=== PATIENT | male | born 1970 | race Caucasian/White ===

== ENCOUNTER → 2018-03-20 | Outpatient (CLI) | payer OTHER ==
--- NOTE | 2018-03-20 14:27 | MR ---
EXAMINATION TYPE: MR knee RT wo con DATE OF EXAM: 03/20/2018 COMPARISON: NONE HISTORY: Pain in right knee TECHNIQUE: Multiplanar, multisequence imaging of the right knee is performed without IV contrast. FINDINGS: MEDIAL MENISCUS: There is some minimal increased signal within the substance of the posterior horn me dial meniscus compatible with internal derangement or degenerative change. Anterior horn appears inta ct. LATERAL MENISCUS: There is increased signal within the anterior horn lateral meniscus which could be related to some mild internal derangement or degenerative change. Posterior horn appears intact. CRUCIATE LIGAMENTS: The anterior and posterior cruciate ligaments are intact and unremarkable. COLLATERAL LIGAMENTS: The medial collateral ligament and lateral collateral ligament complex are inta ct. Minimal signal may be adjacent to the medial collateral ligament. Very mild strain could be consi dered. EXTENSOR MECHANISM: There is minimal increased signal near the insertion of the patellar tendon on th e tibia. Mild strain at this location should be considered. Distal quadriceps tendon is normal. EFFUSION: No significant suprapatellar joint effusion. POPLITEAL CYST: No popliteal/moore cyst. TRICOMPARTMENT SPACES: Mild narrowing of the medial lateral compartment are present. Patellofemoral j oint space appears preserved. CARTILAGE: There is mild thinning of the articular cartilage within the medial and lateral compartmen t joint spaces compatible some mild osteoarthritic degenerative change. Articular cartilage appears i ntact. Patellofemoral articular cartilage appears intact. BONE MARROW SIGNAL: No focal abnormal marrow signal is appreciated. OTHER: There is some superficial soft tissue swelling anterior to the patella within the subcutaneou s tissues. Note is made of some mild varicosities within the medial distal thigh IMPRESSION: 1. Internal derangement or degenerative change within the posterior horn medial meniscus and anterior horn lateral meniscus. 2. Mild superficial soft tissue swelling anterior to patella. 3. Mild osteoarthritic degenerative change medial and lateral compartments.
== END | disposition home or self-care (01) ==
LOC: RADMRIMAIN 09:53
PROVIDERS: ATTEND Orthopaedic Surgery
DX: M17.11 Unilateral primary osteoarthritis, right knee (principal)

== ENCOUNTER → 2019-07-04 | Outpatient (CLI) | payer BC | END | disposition home or self-care (01) | LOC: LABWHC1 11:59 | PROVIDERS: ATTEND Internal Medicine | DX: D64.9 Anemia, unspecified (principal) | CPT/HCPCS: 36415; 83021 ==

== ENCOUNTER → 2022-01-30 | Outpatient (CLI) | payer BC ==
--- NOTE | 2022-01-30 09:59 | CT ---
EXAMINATION TYPE: CT shoulder LT w con DATE OF EXAM: 01/30/2022 COMPARISON: Plain film radiographs 01/04/2022 HISTORY: Pain left shoulder CT DLP: 1482.[address] of the left shoulder with reconstruction imaging. Contrast:Isovue 300/100 TECHNIQUE: Contrast-enhanced CT of the right shoulder was performed with bone and soft tissue window settings submitted in the axial coronal and sagittal planes. At a separate workstation [id number] TR imagin g was obtained. FINDINGS: I do not see evidence for fracture or dislocation. No evidence for subacromial impingement as there is a flat acromium. AC joint arthropathy with mild spurring seen. No evidence of distal c lavicular lesion or fracture. Tiny bone island humeral head. Glenohumeral joint space is well-preserv ed. No obvious rotator cuff abnormality seen on CT. MRI is much more sensitive and specific to rota tor cuff pathology. No soft tissue masses appreciated. Visualized portions of the right lung demons trate right apical scarring. No pathologic enhancement identified. IMPRESSION: 1. AC joint arthropathy without evidence for lesion or fracture.
== END | disposition home or self-care (01) ==
LOC: RADCTMAIN 08:18
PROVIDERS: ATTEND Internal Medicine
DX: M12.812 Other specific arthropathies, not elsewhere classified, left shoulder (principal)

== ENCOUNTER 2024-01-19 19:26 | Observation (INO) | payer BC ==
--- NOTE | 2024-01-19 20:12 | ED ---
Abdominal Pain HPI - General Chief Complaint: Abdominal Pain Stated Complaint: abd pain Time Seen by Provider: 01/19/24 19:46 Source: patient, EMS, RN notes reviewed Mode of arrival: EMS Limitations: no limitations - History of Present Illness Initial Comments: 53-year-old male with a history of kidney stones in the past who had the onset at 6 PM tonight of severe left-sided flank pain similar to previous kidney stones. Sharp nonradiating. No nausea vomiting fevers chills or sweats. MD Complaint: flank pain - Related Data Home Medications Medication Instructions Recorded Confirmed Benzoyl Peroxide 10% Cleanser 1 applic TOPICAL DAILY 01/19/24 01/19/24 Clindamycin Phosphate 1% Swab 1 applic TOPICAL DAILY 01/19/24 01/19/24 Ergocalciferol (Vitamin D2) 1,250 mcg PO MO 01/19/24 01/19/24 [Drisdol (50,000 Iu)] Ferrous Sulfate [Feosol] 325 mg PO DAILY 01/19/24 01/19/24 LORazepam [Ativan] 0.5 mg PO BID 01/19/24 01/19/24 Losartan Potassium 100 mg PO DAILY 01/19/24 01/19/24 Metoprolol Tartrate [Lopressor] 50 mg PO DAILY 01/19/24 01/19/24 Mirtazapine 7.5 mg PO HS PRN 01/19/24 01/19/24 Naproxen Sodium [Aleve] 220 mg PO BID 01/19/24 01/19/24 Rosuvastatin Calcium 5 mg PO HS 01/19/24 01/19/24 Allergies Allergy/AdvReac Type Severity Reaction Status Date / Time animal dander Allergy Itching Uncoded 01/19/24 20:38 dust Allergy Itching Uncoded 01/19/24 20:38 pollen Allergy Itching Uncoded 01/19/24 20:38 Review of Systems ROS Statement: Those systems with pertinent positive or pertinent negative responses have been documented in the HPI. ROS Other: All systems not noted in ROS Statement are negative. Past Medical History Past Medical History: Hypertension Additional Past Medical History / Comment(s): Kidney Stones History of Any Multi-Drug Resistant Organisms: None Reported Past Surgical History: Appendectomy, Orthopedic Surgery, Tonsillectomy Additional Past Surgical History / Comment(s): Wrist Surgery Past Anesthesia/Blood Transfusion Reactions: Previous Problems w/ Anesthesia Additional Past Anesthesia/Blood Transfusion Reaction / Comment(s): difficult time waking up from aa Past Psychological History: No Psychological Hx Reported Past Alcohol Use History: Rare Past Drug Use History: None Reported - Past Family History Father Additional Family Medical History / Comment(s): smoker, quad bypass Mother Family Medical History: Diabetes Mellitus General Exam - General Exam Comments Initial Comments: This is a well-developed well-nourished awake alert oriented x 4 male Limitations: no limitations General appearance: alert, anxious, in distress Head exam: Present: atraumatic, normocephalic, normal inspection Eye exam: Present: normal appearance, PERRL, EOMI. Absent: scleral icterus, conjunctival injection, periorbital swelling ENT exam: Present: normal exam, mucous membranes moist Neck exam: Present: normal inspection, full ROM. Absent: tenderness, meningismus, lymphadenopathy Respiratory exam: Present: normal lung sounds bilaterally. Absent: respiratory distress, wheezes, rales, rhonchi, stridor Cardiovascular Exam: Present: regular rate, normal rhythm, normal heart sounds. Absent: systolic murmur, diastolic murmur, rubs, gallop, clicks GI/Abdominal exam: Present: soft, normal bowel sounds. Absent: distended, tenderness, guarding, rebound, rigid Extremities exam: Present: normal inspection, full ROM, normal capillary refill. Absent: tenderness, pedal edema, joint swelling, calf tenderness Back exam: Present: normal inspection, CVA tenderness (L) Neurological exam: Present: alert, oriented X3, CN II-XII intact Psychiatric exam: Present: normal affect, normal mood Skin exam: Present: warm, dry, intact, normal color. Absent: rash Course Vital Signs 01/19/24 19:31 Temperature 98.0 F Pulse Rate 71 Respiratory 18 Rate Blood Pressure 149/81 O2 Sat by Pulse 96 Oximetry - Reevaluation(s) Reevaluation #1: 01/19/24 21:25 Evaluation the patient finds that he feels much improved after the IV Toradol. Medical Decision Making - Medical Decision Making I did discuss the findings with the patient and his as well as with Dr. Esteves. The patient will be admitted for pain control IV hydration n.p.o. after midnight. The patient keeps having refractory pain he did receive IV morphine by EMS IV Toradol and IV Dilaudid given on my orders. Was pt. sent in by a medical professional or institution (, [facility], [employer], urgent care, hospital, or usp...) When possible be specific @ -Patient's family Did you speak to anyone other than the patient for history (EMS, parent, family, police, friend...)? What history was obtained from this source @ -Patient's family Did you review nursing and triage notes (agree or disagree)? Why? @ -I reviewed and agree with nursing and triage notes Were old charts reviewed (outside hosp., previous admission, EMS record, old EKG, old radiological studies, urgent care reports/EKG's, usp records)? Report findings @ -Old charts were reviewed Differential Diagnosis (chest pain, altered mental status, abdominal pain women, abdominal pain men, vaginal bleeding, weakness, fever, dyspnea, syncope, headache, dizziness, GI bleed, back pain, seizure, CVA, palpatations, mental health, musculoskeletal)? @ -Not applicable EKG interpreted by me (3pts min.). @ -Not indicated X-rays interpreted by me (1pt min.). @ -None done CT interpreted by me (1pt min.). @ -CT abdomen pelvis imaging positive for kidney stones bilaterally there is a 4.5 mm stone at the left UPJ. U/S interpreted by me (1pt. min.). @ -None done What testing was considered but not performed or refused? (CT, X-rays, U/S, labs)? Why? @ -None What meds were considered but not given or refused? Why? @ -None Did you discuss the management of the patient with other professionals (professionals i.e. , [facility], [employer], lab, RT, psych nurse, school social worker, communication equipment repairer, teacher, coastal/harbor defense officer, senior case manager)? Give summary @ -Dr. Esteves Was smoking cessation discussed for >3mins.? @ -No Was critical care preformed (if so, how long)? @ -No Were there social determinants of health that impacted care today? How? (Homelessness, low income, unemployed, alcoholism, drug addiction, transportation, low edu. Level, literacy, decrease access to med. care, long-term, rehab)? @ -No Was there de-escalation of care discussed even if they declined (Discuss DNR or withdrawal of care, Hospice)? DNR status @ -No What co-morbidities impacted this encounter? (DM, HTN, Smoking, COPD, CAD, Cancer, CVA, ARF, Chemo, Hep., AIDS, mental health diagnosis, sleep apnea, morbid obesity)? @ -None Was patient admitted / discharged? Hospital course, mention meds given and route, prescriptions, significant lab abnormalities, going to OR and other pertinent info. @ -Hospital course was admitted he will be n.p.o. after midnight possible surgery in the a.m. IV fluids and IV pain medication Undiagnosed new problem with uncertain prognosis? @ -No Drug Therapy requiring intensive monitoring for toxicity (Heparin, Nitro, Insulin, Cardizem)? @ -No Were any procedures done? @ -No Diagnosis/symptom? @ -Kidney stone, intractable pain, hematuria] Acute, or Chronic, or Acute on Chronic? @ -Acute on chronic Uncomplicated (without systemic symptoms) or Complicated (systemic symptoms)? @ -Default Side effects of treatment? @ -No Exacerbation, Progression, or Severe Exacerbation? @ -No Poses a threat to life or bodily function? How? (Chest pain, USA, MS, pneumonia, PE, COPD, DKA, ARF, appy, cholecystitis, CVA, Diverticulitis, Homicidal, Suicidal, threat to staff... and all critical care pts) @ -No - Lab Data Result diagrams: 01/19/24 20:16 01/19/24 20:16 Lab Results 01/19/24 01/19/24 01/19/24 Range/Units 20:16 20:16 21:31 WBC 7.7 (3.8-10.6) k/uL RBC 4.71 (4.30-5.90) m/uL Hgb 13.2 (13.0-17.5) gm/dL Hct 41.2 (39.0-53.0) % MCV 87.5 (80.0-100.0) fL MCH 28.1 (25.0-35.0) pg MCHC 32.1 (31.0-37.0) g/dL RDW 14.9 (11.5-15.5) % Plt Count 223 (150-450) k/uL MPV 7.8 Neutrophils % 68 % Lymphocytes % 19 % Monocytes % 7 % Eosinophils % 4 % Basophils % 1 % Neutrophils # 5.3 (1.3-7.7) k/uL Lymphocytes # 1.5 (1.0-4.8) k/uL Monocytes # 0.6 (0-1.0) k/uL Eosinophils # 0.3 (0-0.7) k/uL Basophils # 0.0 (0-0.2) k/uL Sodium 140 (137-145) mmol/L Potassium 4.4 (3.5-5.1) mmol/L Chloride 108 H (98-107) mmol/L Carbon Dioxide 24 (22-30) mmol/L Anion Gap 8 mmol/L BUN 18 (9-20) mg/dL Creatinine 0.97 (0.66-1.25) mg/dL Est GFR (CKD-EPI)AfAm >90 (>60 ml/min/1.73 sqM) Est GFR (CKD-EPI)NonAf >90 (>60 ml/min/1.73 sqM) Glucose 104 H (74-99) mg/dL Calcium 8.6 (8.4-10.2) mg/dL Total Bilirubin 0.5 (0.2-1.3) mg/dL AST 32 (17-59) U/L ALT 54 H (4-49) U/L Alkaline Phosphatase 72 (38-126) U/L Total Protein 7.2 (6.3-8.2) g/dL Albumin 3.8 (3.5-5.0) g/dL Amylase 63 (30-110) U/L Lipase 407 H (23-300) U/L Urine Color Yellow Urine Appearance Cloudy (Clear) Urine pH 5.0 (5.0-8.0) Ur Specific [place] 1.024 (1.001-1.035) Urine Protein Trace H (Negative) Urine Glucose (UA) Negative (Negative) Urine Ketones Negative (Negative) Urine Blood Moderate H (Negative) Urine Nitrite Negative (Negative) Urine Bilirubin Negative (Negative) Urine Urobilinogen <2.0 (<2.0) mg/dL Ur Leukocyte Esterase Negative (Negative) Urine RBC >182 H (0-5) /hpf Urine WBC 4 (0-5) /hpf Ur Squamous Epith Cells <1 (0-4) /hpf Urine Bacteria Rare H (None) /hpf Urine Mucus Occasional H (None) /hpf Disposition Clinical Impression: Kidney stone on left side, Intractable pain, Hematuria Disposition: [facility] Condition: Fair Referrals: Violet Patel MD [Primary Care Provider] - 1-2 days Time of Disposition: 22:58 Decision Date: 01/19/24 Decision Time: 22:58
[2024-01-19] MEDS: KETOROLAC 15 MG/ML 1 ML VIAL IVP STA (20:16)
[2024-01-19 20:23] LABS: Basophils % (A) 1 %; Eosinophils # (A) 0.3 k/uL (0-0.7); Eosinophils % (A) 4 %; HCT 41.2 % (39.0-53.0); HGB 13.2 gm/dL (13.0-17.5); Lymphocytes # (A) 1.5 k/uL (1.0-4.8); Lymphocytes % (A) 19 %; MCH 28.1 pg (25.0-35.0); MCHC 32.1 g/dL (31.0-37.0); MCV 87.5 fL (80.0-100.0); Mean Platelet Volume 7.8; Monocytes # (A) 0.6 k/uL (0-1.0); Monocytes % (A) 7 %; Neutrophils # (A) 5.3 k/uL (1.3-7.7); Neutrophils % (A) 68 %; Platelet Count 223 k/uL (150-450); RBC 4.71 m/uL (4.30-5.90); RDW 14.9 % (11.5-15.5); WBC 7.7 k/uL (3.8-10.6)
[2024-01-19 20:55] LABS: ALT 54 U/L (4-49); AST 32 U/L (17-59); African American GFR (CKD) >90 (>60 ml/min/1.73 sqM); Albumin 3.8 g/dL (3.5-5.0); Alkaline Phosphatase 72 U/L (38-126); Amylase 63 U/L (30-110); Anion Gap 8 mmol/L; Blood Urea Nitrogen 18 mg/dL (9-20); Calcium 8.6 mg/dL (8.4-10.2); Carbon Dioxide 24 mmol/L (22-30); Chloride 108 mmol/L (98-107); Glucose 104 mg/dL (74-99); Lipase 407 U/L (23-300); Non-African American GFR(CKD) >90 (>60 ml/min/1.73 sqM); Potassium 4.4 mmol/L (3.5-5.1); Sodium 140 mmol/L (137-145); Total Bilirubin 0.5 mg/dL (0.2-1.3); Total Protein 7.2 g/dL (6.3-8.2)
[2024-01-19] MEDS: HYDROmorphone 1 MG/ML 1 ML SYRINGE IVP STA (21:46)
--- NOTE | 2024-01-19 21:46 | CT ---
EXAMINATION TYPE: CT abdomen pelvis wo con DATE OF EXAM: 01/19/2024 HISTORY: Left flank pain, kidney stone suspected CT DLP: 2622.3 mGycm. Automated Exposure Control for Dose Reduction was Utilized. TECHNIQUE: CT scan of the abdomen and pelvis is performed without oral or IV contrast. COMPARISON: 04/24/2015 FINDINGS: LUNG BASES: No significant abnormality is appreciated. LIVER/GB: No significant abnormality is appreciated. PANCREAS: No significant abnormality is seen. SPLEEN: No significant abnormality is seen. ADRENALS: No significant abnormality is seen. KIDNEYS / COLLECTING SYSTEMS: Bilateral nonobstructing 3 mm - 8 mm renal calcifications are seen. On the ipsilateral left there is minimal hydronephrosis with mild hydroureter down to a 4.5 mm calcifica tion at the left UPJ, with the left ureter unremarkable. On the contralateral right there is no hydro nephrosis or hydroureter. BOWEL: No significant abnormality is seen. PELVIC VISCERA: Urinary bladder unremarkable. LYMPH NODES: No greater than 1cm abdominal or pelvic lymph nodes are appreciated. OSSEOUS STRUCTURES: No significant abnormality is seen. Limitation of the study: Without IV contrast there is limited sensitivity for focal visceral lesions, intraluminal filling defects, and vascular pathology. IMPRESSION: Mild left obstructive uropathy secondary to 4.5 mm left UVJ calcification.
[2024-01-19 22:00] LABS: Appearance,Urine Cloudy (Clear); Bacteria,Urine Rare /hpf; Bilirubin,Urine Negative (Negative); Blood,Urine Moderate (Negative); Color,Urine Yellow; Glucose,Urine (UA) Negative (Negative); Ketones,Urine Negative (Negative); Leukocyte Esterase,Urine Negative (Negative); Mucus,Urine Occasional /hpf; Nitrite,Urine Negative (Negative); Protein,Urine Trace (Negative); RBC,Urine >182 /hpf (0-5); Specific Gravity,Urine 1.024 (1.001-1.035); Squamous Epithelial Cell,Urine <1 /hpf (0-4); Urobilinogen,Urine <2.0 mg/dL (<2.0); WBC,Urine 4 /hpf (0-5)
[2024-01-19] MEDS ORDERED: NALOXONE 0.4 MG/ML 1 ML VIAL IV PRN (22:59)
[2024-01-19] MEDS: SODIUM CHLORIDE 0.9% 1,000 ML IV STA (23:41)
[2024-01-20] MEDS: SODIUM CHLORIDE 0.9% 1,000 ML IV SCH (00:52)
[2024-01-20] MEDS: HYDROmorphone 1 MG/ML 1 ML SYRINGE IVP PRN (00:55)
--- NOTE | 2024-01-20 14:56 | P.GSHP ---
History of Present Illness Chief Complaint: left ureteral stone This is a 53-year-old male that presented to the hospital with intractable left flank pain associated with nausea and vomiting. In the emergency department he underwent CT abdomen and pelvis which showed evidence of a 4.5 mm left-sided proximal ureteral stones with hydronephrosis. He has required multiple IV doses of pain medications and continues to have persistent pain. He does have history of previous kidney stones treated by Dr. Blas coulter in 2014. That was his last stone recurrence. This morning on evaluation he continues to have left flank pain but indicates the nausea and vomiting has resolved. Denies any gross hematuria or dysuria or any additional urinary symptoms. Denies any fevers or chills. - Constitutional Constitutional: Denies chills, Denies fever - EENT Ears, nose, mouth and throat: Denies headache, Denies sore throat - Cardiovascular Cardiovascular: Denies chest pain, Denies shortness of breath - Respiratory Respiratory: Denies cough, Denies dyspnea - Gastrointestinal Gastrointestinal: Reports abdominal pain, Reports nausea, Reports vomiting - Genitourinary (Female) Genitourinary: Reports flank pain, Reports kidney stones, Denies dysuria, Denies hematuria - Integumentary Integumentary: Denies pruritus, Denies rash - Neurological Neurological: Denies numbness, Denies weakness Past Medical History Past Medical History: Asthma, Hyperlipidemia, Hypertension, Sleep Apnea/CPAP/BIPAP Additional Past Medical History / Comment(s): Kidney Stones, cpap. skin infecti on on antibiotics finished january 12 History of Any Multi-Drug Resistant Organisms: None Reported Past Surgical History: Appendectomy, Orthopedic Surgery, Tonsillectomy Additional Past Surgical History / Comment(s): bilateral carpel tunnel sx. right arm sx. nasal cavaties cleaned out.right hand/thumb area with screws. lithot ripsy. Past Anesthesia/Blood Transfusion Reactions: Previous Problems w/ Anesthesia Additional Past Anesthesia/Blood Transfusion Reaction / Comment(s): difficult time waking up Past Psychological History: Anxiety Smoking Status: Never smoker Past Alcohol Use History: Rare Past Drug Use History: None Reported - Past Family History Father Additional Family Medical History / Comment(s): smoker, quad bypass Mother Family Medical History: Diabetes Mellitus Medications and Allergies Home Medications Medication Instructions Recorded Confirmed Type Benzoyl Peroxide 10% Cleanser 1 applic TOPICAL DAILY 01/19/24 01/19/24 History Clindamycin Phosphate 1% Swab 1 applic TOPICAL DAILY 01/19/24 01/19/24 History Ergocalciferol (Vitamin D2) 1,250 mcg PO MO 01/19/24 01/19/24 History [Drisdol (50,000 Iu)] Ferrous Sulfate [Feosol] 325 mg PO HS 01/19/24 01/20/24 History LORazepam [Ativan] 0.5 mg PO BID 01/19/24 01/19/24 History Metoprolol Tartrate [Lopressor] 50 mg PO HS 01/19/24 01/20/24 History Naproxen Sodium [Aleve] 220 mg PO BID 01/19/24 01/19/24 History RX: Losartan Potassium 100 mg PO HS 01/19/24 01/20/24 History RX: Mirtazapine 7.5 mg PO HS PRN 01/19/24 01/19/24 History RX: Rosuvastatin Calcium 5 mg PO HS 01/19/24 01/19/24 History Allergies Allergy/AdvReac Type Severity Reaction Status Date / Time animal dander Allergy Itching Uncoded 01/19/24 20:38 dust Allergy Itching Uncoded 01/19/24 20:38 pollen Allergy Itching Uncoded 01/19/24 20:38 Surgical - Exam Vital Signs Temp Pulse Resp BP Pulse Ox 98.0 F 71 18 149/81 96 01/19/24 19:31 01/19/24 19:31 01/19/24 19:31 01/19/24 19:31 01/19/24 19:31 - General no distress, moderate pain - Eyes normal ocular movement, no pale - ENT normal nares, normal mucosa - Respiratory normal expansion, normal respiratory effort - Abdomen Abdomen: soft, non tender - Psychiatric oriented to time, oriented to person, oriented to place Results - Labs 01/19/24 20:16 01/19/24 20:16 Abnormal Lab Results - Last 24 Hours (Table) 01/19/24 01/19/24 Range/Units 20:16 21:31 Chloride 108 H (98-107) mmol/L Glucose 104 H (74-99) mg/dL ALT 54 H (4-49) U/L Lipase 407 H (23-300) U/L Urine Protein Trace H (Negative) Urine Blood Moderate H (Negative) Urine RBC >182 H (0-5) /hpf Urine Bacteria Rare H (None) /hpf Urine Mucus Occasional H (None) /hpf Diabetes panel 01/19/24 Range/Units 20:16 Sodium 140 (137-145) mmol/L Potassium 4.4 (3.5-5.1) mmol/L Chloride 108 H (98-107) mmol/L Carbon Dioxide 24 (22-30) mmol/L BUN 18 (9-20) mg/dL Creatinine 0.97 (0.66-1.25) mg/dL Glucose 104 H (74-99) mg/dL Calcium 8.6 (8.4-10.2) mg/dL AST 32 (17-59) U/L ALT 54 H (4-49) U/L Alkaline Phosphatase 72 (38-126) U/L Total Protein 7.2 (6.3-8.2) g/dL Albumin 3.8 (3.5-5.0) g/dL Calcium panel 01/19/24 Range/Units 20:16 Calcium 8.6 (8.4-10.2) mg/dL Albumin 3.8 (3.5-5.0) g/dL Pituitary panel 01/19/24 Range/Units 20:16 Sodium 140 (137-145) mmol/L Potassium 4.4 (3.5-5.1) mmol/L Chloride 108 H (98-107) mmol/L Carbon Dioxide 24 (22-30) mmol/L BUN 18 (9-20) mg/dL Creatinine 0.97 (0.66-1.25) mg/dL Glucose 104 H (74-99) mg/dL Calcium 8.6 (8.4-10.2) mg/dL Adrenal panel 01/19/24 Range/Units 20:16 Sodium 140 (137-145) mmol/L Potassium 4.4 (3.5-5.1) mmol/L Chloride 108 H (98-107) mmol/L Carbon Dioxide 24 (22-30) mmol/L BUN 18 (9-20) mg/dL Creatinine 0.97 (0.66-1.25) mg/dL Glucose 104 H (74-99) mg/dL Calcium 8.6 (8.4-10.2) mg/dL Total Bilirubin 0.5 (0.2-1.3) mg/dL AST 32 (17-59) U/L ALT 54 H (4-49) U/L Alkaline Phosphatase 72 (38-126) U/L Total Protein 7.2 (6.3-8.2) g/dL Albumin 3.8 (3.5-5.0) g/dL Assessment and Plan Assessment: 53-year-old male with 4.5 mm left-sided proximal ureteral stone, having intractable pain secondary to his stone. Option of left-sided ureteroscopy with holmium laser was discussed. Aware the risk which includes but not limited to bleeding, infection, injury to the ureter. Risk of anesthesia was also discussed. -N.p.o. -OR for left-sided ureteroscopy, holmium laser lithotripsy, stone basketing and stent insertion
[2024-01-20] MEDS ORDERED: MIRTAZAPINE 15 MG TAB PO PRN (17:06)
[2024-01-20] MEDS: fentaNYL (PF) 50 MCG/ML 2 ML AMP IVP ONE ×2 (18:35→19:34)
[2024-01-20] MEDS ORDERED: ceFAZolin 1 GM/50 ML BAG (PMX) ONE (19:33)
[2024-01-20] MEDS ORDERED: GLYCOPYRROLATE 0.2 MG/ML 2 ML VIAL ONE (19:33)
[2024-01-20] MEDS ORDERED: LIDOCAINE 1% INJ 10MG/ML (20 ML MDV) ONE (19:33)
[2024-01-20] MEDS ORDERED: SUCCINYLCHOLINE CHLORIDE 200 MG/10 ML VIAL IV ONE (19:33)
[2024-01-20] MEDS ORDERED: MIDAZOLAM 2 MG/2 ML VIAL ONE (19:33)
[2024-01-20] MEDS ORDERED: fentaNYL (PF) 50 MCG/ML 2 ML AMP ONE (19:33)
[2024-01-20] MEDS ORDERED: PROPOFOL 10 MG/ML 20 ML VIAL IV ONE (19:33)
[2024-01-20] MEDS ORDERED: KETAMINE HCL IN 0.9 % NACL 50 MG/5 ML SYRINGE ONE (19:33)
[2024-01-20] MEDS: LACTATED RINGERS 1,000 ML IV ONE (19:37)
[2024-01-20] MEDS: SODIUM CHLORIDE 0.9% 100 ML with ceFAZolin 3,000 MG IV ONE (19:52)
--- NOTE | 2024-01-20 20:48 | P.OP ---
Date of Procedure: 01/20/24 Preoperative Diagnosis: Left renal, ureteral stone Postoperative Diagnosis: Same Procedure(s) Performed: Cystoscopy, left ureteroscopy, holmium laser lithotripsy, stone basketing, stent insertion Implants: 6 [place] by 28 cm stent left on a string taped to the patient penis Anesthesia: GOLDA Surgeon: To Tomas Estimated Blood Loss (ml): 5 Pathology: none sent Condition: stable Disposition: PACU Indications for Procedure: 53-year-old male with 4.5 mm left-sided proximal ureteral stone, having intractable pain secondary to his stone. Option of left-sided ureteroscopy with holmium laser was discussed. Aware the risk which includes but not limited to bleeding, infection, injury to the ureter. Risk of anesthesia was also discussed. Operative Findings: Approximately 7 stones within the kidney, 1 stone at the UPJ and 6 additional stones within the kidney Description of Procedure: Patient brought to the operating room, general anesthesia was induced. He was prepped and draped in sterile fashion and placed in dorsolithotomy position. Cystoscopy fitted with a 21 [place] sheath was inserted per urethra, cystoscopy was performed which showed no abnormality within the bladder. 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 Attention was then carried to the left ureteral orifice which was intubated with a sensor wire. The wire was advanced under fluoroscopy into the renal pelvis. Next under fluoroscopy I attempted to pass an 1113 [place] access sheath but resistance was met at the distal ureter. At this time the flexible ureteroscope was backloaded over the wire, and I was able to advance the ureteroscope over the wire and into the proximal ureter. At this point the stone was encountered at the UPJ which was dusted, 3 additional stones were encountered within the upper and the midpole that were also dusted. There was additional stones within the lower pole those were repositioned into the upper pole using a stone basket. The stones were also dusted. Repeat renoscopy showed no sizable fragments or injury to the kidney. Pullback ureteroscopy was performed showed no injury to the ureter or any ureteral stones, as ureteroscope was withdrawn and a sensor wire was advanced through. Next a ureteral stent was passed over the wire, the proximal curl was visualized on fluoroscopy and the distal curl was visualized using the cystoscope. The bladder was emptied at the end of the case. Patient tolerated procedure well was taken to recovery in stable condition
[2024-01-20] MEDS: MEPERIDINE 50 MG/ML SYRINGE IVP ONE (21:26)
[2024-01-20] MEDS: ONDANSETRON 4 MG/2 ML VIAL IVP PRN (21:30)
[2024-01-20] MEDS: LORazepam 0.5 MG TAB PO SCH (23:01)
[2024-01-20] MEDS: ATORVASTATIN 10 MG TAB PO SCH (23:01)
[2024-01-20] MEDS: METOPROLOL TARTRATE 50 MG TAB PO SCH (23:01)
[2024-01-20] MEDS: FERROUS SULFATE 325 MG TAB PO SCH (23:01)
[2024-01-20] MEDS: LOSARTAN 50 MG TAB PO SCH (23:01)
[2024-01-21 03:22] VITALS: TEMP 98.4
[2024-01-21] MEDS: KETOROLAC 15 MG/ML 1 ML VIAL IVP PRN (05:32)
--- NOTE | 2024-01-21 08:10 | FL ---
Fluoroscopy History: LEFT RENAL STONES Left stent placement-1.05 FL-DAP-33.75 Gycm2
[2024-01-21 08:54] VITALS: BP 131/70; PULSE 74; RESP 17
--- NOTE | 2024-01-21 09:14 | P.DS ---
Providers Date of admission: 01/19/24 22:59 Attending physician: To Tomas MD Primary care physician: Violet Patel [facility] Course: This is a 53-year-old male with history of left-sided ureteral stone. Admitted to the hospital with intractable pain. Patient was taken to the OR on January for left-sided ureteroscopy with holmium laser. Please see op note dated January 19 for surgery details. Patient did well in the postoperative period. He was discharged home on postop day #1, at time of discharge he was tolerating a diet, ambulating, and pain was controlled. He will follow-up in 1 week for stent removal Patient Condition at Discharge: Fair Plan - Discharge Summary Discharge Rx Participant: No New Discharge Prescriptions: No Action Rosuvastatin Calcium 5 mg PO HS Clindamycin Phosphate 1% Swab 1 applic TOPICAL DAILY Losartan Potassium 100 mg PO HS Naproxen Sodium [Aleve] 220 mg PO BID Mirtazapine 7.5 mg PO HS PRN PRN Reason: sleep Ferrous Sulfate [Feosol] 325 mg PO HS Metoprolol Tartrate [Lopressor] 50 mg PO HS LORazepam [Ativan] 0.5 mg PO BID Ergocalciferol (Vitamin D2) [Drisdol (50,000 Iu)] 1,250 mcg PO MO Benzoyl Peroxide 10% Cleanser 1 applic TOPICAL DAILY Discharge Medication List Benzoyl Peroxide 10% Cleanser 1 applic TOPICAL DAILY 01/19/24 [History] Clindamycin Phosphate 1% Swab 1 applic TOPICAL DAILY 01/19/24 [History] Ergocalciferol (Vitamin D2) [Drisdol (50,000 Iu)] 1,250 mcg PO MO 01/19/24 [History] Ferrous Sulfate [Feosol] 325 mg PO HS 01/19/24 [History] LORazepam [Ativan] 0.5 mg PO BID 01/19/24 [History] Losartan Potassium 100 mg PO HS 01/19/24 [History] Metoprolol Tartrate [Lopressor] 50 mg PO HS 01/19/24 [History] Mirtazapine 7.5 mg PO HS PRN 01/19/24 [History] Naproxen Sodium [Aleve] 220 mg PO BID 01/19/24 [History] Rosuvastatin Calcium 5 mg PO HS 01/19/24 [History] Follow up Appointment(s)/Referral(s): Violet Patel MD [Primary Care Provider] - 1-2 days
[2024-01-21] MEDS: BENZOYL PEROXIDE 10% TOPICAL SCH (11:05)
[2024-01-21] MEDS: CLINDAMYCIN PHOSPHATE 1% TOPICAL SCH (11:05)
== END 2024-01-21 13:10 | disposition home or self-care (01) ==
LOC: EC 19:26 → 6NMEDSUR 22:59
PROVIDERS: ADMIT Urology; ATTEND Urology
DX: N20.2 Calculus of kidney with calculus of ureter (principal); I10 Essential (primary) hypertension; Z87.442 Personal history of urinary calculi; Z79.899 Other long term (current) drug therapy; E78.5 Hyperlipidemia, unspecified; G47.30 Sleep apnea, unspecified; F41.9 Anxiety disorder, unspecified
CPT/HCPCS: 96376 ×2; 96361 ×3; 96374; 96375; 99285; 36415; 80053; 82150; 83690; 85025; 81001; 74176; 52332; G0378 ×3; C2625; C1769; J2250; J0330; J2175; J2405; J0690 ×2; J2001; J3010; J1170 ×2; J1885 ×2; J2704

== ENCOUNTER 2024-01-22 22:28 | Emergency (ER) | payer BC ==
[2024-01-22 23:11] VITALS: TEMP 98.8
[2024-01-22] MEDS: KETOROLAC 15 MG/ML 1 ML VIAL IVP STA (23:41)
[2024-01-22] MEDS: MORPHINE SULFATE 4 MG/ML SYRINGE IVP STA (23:42)
[2024-01-22 23:51] LABS: Basophils % (A) 0 %; Eosinophils # (A) 0.2 k/uL (0-0.7); Eosinophils % (A) 3 %; HCT 38.7 % (39.0-53.0); HGB 12.5 gm/dL (13.0-17.5); Lymphocytes # (A) 0.9 k/uL (1.0-4.8); Lymphocytes % (A) 13 %; MCH 28.1 pg (25.0-35.0); MCHC 32.2 g/dL (31.0-37.0); MCV 87.2 fL (80.0-100.0); Monocytes # (A) 0.6 k/uL (0-1.0); Monocytes % (A) 9 %; Neutrophils # (A) 4.8 k/uL (1.3-7.7); Neutrophils % (A) 72 %; Platelet Count 196 k/uL (150-450); RBC 4.43 m/uL (4.30-5.90); RDW 14.8 % (11.5-15.5); WBC 6.6 k/uL (3.8-10.6)
--- NOTE | 2024-01-23 00:15 | CT ---
EXAMINATION TYPE: CT abdomen pelvis wo con DATE OF EXAM: 01/22/2024 HISTORY: pt had lithotripsy 2 days ago, 7 renal stones, now has left flank pain CT DLP: 3465.8 mGycm. Automated Exposure Control for Dose Reduction was Utilized. TECHNIQUE: CT scan of the abdomen and pelvis is performed without oral or IV contrast. COMPARISON: Prior CT 3 days earlier FINDINGS: Within the limitations of a non-contrast study, the following observations are made. LUNG BASES: No significant abnormality is appreciated. LIVER/GB: Liver is diffusely low dense consistent with fatty infiltrative hepatocellular disease. PANCREAS: No significant abnormality is seen. SPLEEN: No significant abnormality is seen. ADRENALS: No significant abnormality is seen. KIDNEYS: Approximately 5 nonobstructing right renal calculi measuring up to 7 mm in size coronal imag e 70 are redemonstrated. No right-sided hydronephrosis. Approximate 5 nonobstructing small left renal calculi redemonstrated. Prior 4.5 mm proximal left uret er calculus now was not distinctly identified. Mild to minimal left-sided hydronephrosis remains pres ent without new obstructing ureter calculus seen. Nondependent air in bladder is presumed product of recent instrumentation. BOWEL: No significant abnormality is seen. GENITAL ORGANS: No gross abnormality seen. LYMPH NODES: No greater than 1cm abdominal or pelvic lymph nodes are appreciated. OSSEOUS STRUCTURES: Severe disc space narrowing at the lumbosacral junction is redemonstrated. OTHER: No significant additional abnormality is seen. IMPRESSION: Interval successful treatment with clearance of the proximal left ureter calculus. Stable mild to minimal left-sided hydronephrosis without new obstructing ureteral calculus. No suspicious n ew or acute findings are present.
[2024-01-23 00:51] LABS: Amorphous Sediment,Urine Rare /hpf; Appearance,Urine Clear (Clear); Bilirubin,Urine Negative (Negative); Blood,Urine Large (Negative); Color,Urine Light Yellow; Glucose,Urine (UA) Negative (Negative); Ketones,Urine Negative (Negative); Leukocyte Esterase,Urine Negative (Negative); Mucus,Urine Rare /hpf; Nitrite,Urine Negative (Negative); PH, Urine 5.5 (5.0-8.0); Protein,Urine Negative (Negative); RBC,Urine >182 /hpf (0-5); Specific Gravity,Urine 1.016 (1.001-1.035); Squamous Epithelial Cell,Urine <1 /hpf (0-4); Urobilinogen,Urine <2.0 mg/dL (<2.0); WBC,Urine 9 /hpf (0-5)
[2024-01-23 01:01] LABS: ALT 37 U/L (4-49); AST 25 U/L (17-59); African American GFR (CKD) 72 (>60 ml/min/1.73 sqM); Albumin 3.9 g/dL (3.5-5.0); Alkaline Phosphatase 67 U/L (38-126); Anion Gap 8 mmol/L; Blood Urea Nitrogen 17 mg/dL (9-20); Calcium 9.3 mg/dL (8.4-10.2); Carbon Dioxide 26 mmol/L (22-30); Chloride 105 mmol/L (98-107); Glucose 112 mg/dL (74-99); Non-African American GFR(CKD) 62 (>60 ml/min/1.73 sqM); Sodium 139 mmol/L (137-145); Total Bilirubin 0.5 mg/dL (0.2-1.3); Total Protein 7.1 g/dL (6.3-8.2)
[2024-01-23] MEDS: HYDROmorphone 1 MG/ML 1 ML SYRINGE IVP STA (01:28)
[2024-01-23] MEDS: TAMSULOSIN 0.4 MG CAP.ER.24H PO STA (01:47)
[2024-01-23] MEDS: MORPHINE SULFATE 4 MG/ML SYRINGE IVP STA (01:57)
--- NOTE | 2024-01-23 02:10 | ED ---
Back Pain HPI - General Chief Complaint: Back Pain/Injury Stated Complaint: Kidney stones Time Seen by Provider: 01/22/24 22:53 Source: EMS Limitations: no limitations - History of Present Illness Initial Comments: 53-year-old male presenting with chief complaint of left flank pain. Patient had procedure done with Dr. Tomas for kidney stone removal on the fifth, he was discharged on the 6th. States that his pain has been fine, however this evening he was having pain that he could not control with medications. No nausea or vomiting. No fever or chills. No dysuria no abdominal pain. - Related Data Home Medications Medication Instructions Recorded Confirmed Benzoyl Peroxide 10% Cleanser 1 applic TOPICAL DAILY 01/19/24 01/19/24 Clindamycin Phosphate 1% Swab 1 applic TOPICAL DAILY 01/19/24 01/19/24 Ergocalciferol (Vitamin D2) 1,250 mcg PO MO 01/19/24 01/19/24 [Drisdol (50,000 Iu)] Ferrous Sulfate [Feosol] 325 mg PO HS 01/19/24 01/20/24 LORazepam [Ativan] 0.5 mg PO BID 01/19/24 01/19/24 Losartan Potassium 100 mg PO HS 01/19/24 01/20/24 Metoprolol Tartrate [Lopressor] 50 mg PO HS 01/19/24 01/20/24 Mirtazapine 7.5 mg PO HS PRN 01/19/24 01/19/24 Naproxen Sodium [Aleve] 220 mg PO BID 01/19/24 01/19/24 Rosuvastatin Calcium 5 mg PO HS 01/19/24 01/19/24 Previous Rx's Medication Instructions Recorded Cephalexin [Keflex] 500 mg PO Q12HR 1 Days #6 cap 01/21/24 Ketorolac [Toradol] 10 mg PO Q6HR PRN #10 tab 01/21/24 HYDROcodone/APAP 7.5-325MG [[place] 1 tab PO Q6HR PRN 3 Days #12 tab 01/23/24 7.5-325] Tamsulosin HCl [Flomax] 0.4 mg PO DAILY #5 capsule 01/23/24 Allergies Allergy/AdvReac Type Severity Reaction Status Date / Time animal dander Allergy Itching Uncoded 01/22/24 22:34 dust Allergy Itching Uncoded 01/22/24 22:34 pollen Allergy Itching Uncoded 01/22/24 22:34 Review of Systems ROS Statement: Those systems with pertinent positive or pertinent negative responses have been documented in the HPI. ROS Other: All systems not noted in ROS Statement are negative. Past Medical History Past Medical History: Asthma, Hyperlipidemia, Hypertension, Sleep Apnea/CPAP/BIPAP Additional Past Medical History / Comment(s): Kidney Stones, cpap. skin infection on antibiotics finished january 12 History of Any Multi-Drug Resistant Organisms: None Reported Past Surgical History: Appendectomy, Orthopedic Surgery, Tonsillectomy Additional Past Surgical History / Comment(s): bilateral carpel tunnel sx. right arm sx. nasal cavaties cleaned out.right hand/thumb area with screws. lithotripsy. Past Anesthesia/Blood Transfusion Reactions: Previous Problems w/ Anesthesia Additional Past Anesthesia/Blood Transfusion Reaction / Comment(s): difficult time waking up Past Psychological History: Anxiety Smoking Status: Never smoker Past Alcohol Use History: Rare Past Drug Use History: None Reported - Past Family History Father Additional Family Medical History / Comment(s): smoker, quad bypass Mother Family Medical History: Diabetes Mellitus General Exam Limitations: no limitations General appearance: alert, in no apparent distress Head exam: Present: atraumatic, normocephalic Eye exam: Present: normal appearance, EOMI Neck exam: Present: normal inspection. Absent: meningismus Respiratory exam: Present: normal lung sounds bilaterally. Absent: respiratory distress, wheezes, rales, rhonchi, stridor Cardiovascular Exam: Present: regular rate, normal rhythm, normal heart sounds. Absent: systolic murmur, diastolic murmur, rubs, gallop, clicks Extremities exam: Present: normal inspection Back exam: Present: CVA tenderness (L). Absent: CVA tenderness (R) Neurological exam: Present: alert, oriented X3 Psychiatric exam: Present: normal affect, normal mood Skin exam: Present: warm, dry Course Vital Signs 01/22/24 01/23/24 22:32 02:18 Temperature 98.8 F Pulse Rate 76 70 Respiratory 20 18 Rate Blood Pressure 189/60 148/78 O2 Sat by Pulse 95 96 Oximetry Medical Decision Making - Medical Decision Making Was pt. sent in by a medical professional or institution (, PA, TRIM INSTALLER, urgent care, hospital, or mcc...) When possible be specific @ -No Did you speak to anyone other than the patient for history (EMS, parent, family, police, friend...)? What history was obtained from this source @ -No Did you review nursing and triage notes (agree or disagree)? Why? @ -I reviewed and agree with nursing and triage notes Were old charts reviewed (outside hosp., previous admission, EMS record, old EKG, old radiological studies, urgent care reports/EKG's, mcc records)? Report findings @ -Notes from the patient's recent procedure reviewed Differential Diagnosis (chest pain, altered mental status, abdominal pain women, abdominal pain men, vaginal bleeding, weakness, fever, dyspnea, syncope, headache, dizziness, GI bleed, back pain, seizure, CVA, palpatations, mental health, musculoskeletal)? @ - MDM Differential Back Pain: Strain, zoster, cauda equina syndrome, epidural abscess, vertebral osteomyelitis, discitis, fracture, subluxation, disc herniation, DJD, spinal stenosis, dissection, AAA, pancreatitis, peptic ulcer disease, pyelonephritis, kidney stone this is not meant to be an all-inclusive list. EKG interpreted by me (3pts min.). @ -As above X-rays interpreted by me (1pt min.). @ -None done CT interpreted by me (1pt min.). @ -CT shows interval successful treatment with clearance of the proximal left ureter calculus. Stable mild to minimal left-sided hydronephrosis without new obstructing ureteral calculus. No suspicious new or acute findings are present. U/S interpreted by me (1pt. min.). @ -None done What testing was considered but not performed or refused? (CT, X-rays, U/S, labs)? Why? @ -None What meds were considered but not given or refused? Why? @ -None Did you discuss the management of the patient with other professionals (professionals i.e. , PA, TRIM INSTALLER, lab, RT, psych nurse, social services assistant, winder fixer, teacher, loan service officer, major case detective)? Give summary @ -No Was smoking cessation discussed for >3mins.? @ -No Was critical care preformed (if so, how long)? @ -No Were there social determinants of health that impacted care today? How? (Homelessness, low income, unemployed, alcoholism, drug addiction, transportation, low edu. Level, literacy, decrease access to med. care, longterm, rehab)? @ -No Was there de-escalation of care discussed even if they declined (Discuss DNR or withdrawal of care, Hospice)? DNR status @ -No What co-morbidities impacted this encounter? (DM, HTN, Smoking, COPD, CAD, Cancer, CVA, ARF, Chemo, Hep., AIDS, mental health diagnosis, sleep apnea, morbid obesity)? @ -None Was patient admitted / discharged? Hospital course, mention meds given and route, prescriptions, significant lab abnormalities, going to OR and other pertinent info. @ -53-year-old male present with chief complaint of left flank pain. He recently kidney stone removal with Dr. Tomas. History and physical exam are conducted. Lab work shows no leukocytosis. Urine has greater than 182 RBCs with only [address] shows successful clearance of ureteral calculus with no new obstruction or other acute process seen. Patient is given pain medication. He is educated on today's findings. Provided with pain medication for home. Discharged home. Follow-up with your urologist. Follow-up with PCP. Report back to ER with any new or worsening symptoms. Discussed return parameters and answered all questions. Patient conveyed verbal understanding and agreed to the plan. I discussed this case in detail with my attending Dr. Mallory Undiagnosed new problem with uncertain prognosis? @ -No Drug Therapy requiring intensive monitoring for toxicity (Heparin, Nitro, Insulin, Cardizem)? @ -No Were any procedures done? @ -No Diagnosis/symptom? @ -Flank pain Acute, or Chronic, or Acute on Chronic? @ -Acute Uncomplicated (without systemic symptoms) or Complicated (systemic symptoms)? @ -Uncomplicated Side effects of treatment? @ -No Exacerbation, Progression, or Severe Exacerbation? @ -No Poses a threat to life or bodily function? How? (Chest pain, USA, [place], pneumonia, PE, COPD, DKA, ARF, appy, cholecystitis, CVA, Diverticulitis, Homicidal, Suici hannah, threat to staff... and all critical care pts) @ -Low likelihood - Lab Data Result diagrams: 01/22/24 23:42 01/22/24 23:42 Lab Results 01/22/24 01/22/24 01/22/24 Range/Units 23:42 23:42 23:59 WBC 6.6 (3.8-10.6) k/uL RBC 4.43 (4.30-5.90) m/uL Hgb 12.5 L (13.0-17.5) gm/dL Hct 38.7 L (39.0-53.0) % MCV 87.2 (80.0-100.0) fL MCH 28.1 (25.0-35.0) pg MCHC 32.2 (31.0-37.0) g/dL RDW 14.8 (11.5-15.5) % Plt Count 196 (150-450) k/uL MPV 8.0 Neutrophils % 72 % Lymphocytes % 13 % Monocytes % 9 % Eosinophils % 3 % Basophils % 0 % Neutrophils # 4.8 (1.3-7.7) k/uL Lymphocytes # 0.9 L (1.0-4.8) k/uL Monocytes # 0.6 (0-1.0) k/uL Eosinophils # 0.2 (0-0.7) k/uL Basophils # 0.0 (0-0.2) k/uL Sodium 139 (137-145) mmol/L Potassium 4.0 (3.5-5.1) mmol/L Chloride 105 (98-107) mmol/L Carbon Dioxide 26 (22-30) mmol/L Anion Gap 8 mmol/L BUN 17 (9-20) mg/dL Creatinine 1.32 H (0.66-1.25) mg/dL Est GFR (CKD-EPI)AfAm 72 (>60 ml/min/1.73 sqM) Est GFR (CKD-EPI)NonAf 62 (>60 ml/min/1.73 sqM) Glucose 112 H (74-99) mg/dL Calcium 9.3 (8.4-10.2) mg/dL Total Bilirubin 0.5 (0.2-1.3) mg/dL AST 25 (17-59) U/L ALT 37 (4-49) U/L Alkaline Phosphatase 67 (38-126) U/L Total Protein 7.1 (6.3-8.2) g/dL Albumin 3.9 (3.5-5.0) g/dL Urine Color Light Yellow Urine Appearance Clear (Clear) Urine pH 5.5 (5.0-8.0) Ur Specific [place] 1.016 (1.001-1.035) Urine Protein Negative (Negative) Urine Glucose (UA) Negative (Negative) Urine Ketones Negative (Negative) Urine Blood Large H (Negative) Urine Nitrite Negative (Negative) Urine Bilirubin Negative (Negative) Urine Urobilinogen <2.0 (<2.0) mg/dL Ur Leukocyte Esterase Negative (Negative) Urine RBC >182 H (0-5) /hpf Urine WBC 9 H (0-5) /hpf Ur Squamous Epith Cells <1 (0-4) /hpf Amorphous Sediment Rare H (None) /hpf Urine Mucus Rare H (None) /hpf Disposition Clinical Impression: Flank pain Disposition: HOME SELF-CARE Condition: Good Instructions (If sedation given, give patient instructions): Flank Pain (ED) Additional Instructions: Follow-up with urologist. Report back to ER with any new or worsening symptoms. Prescriptions: Tamsulosin HCl [Flomax] 0.4 mg PO DAILY #5 capsule HYDROcodone/APAP 7.5-325MG [[place] 7.5-325] 1 tab PO Q6HR PRN 3 Days #12 tab PRN Reason: Pain Is patient prescribed a controlled substance at d/c from ED?: Yes When asked, does pt state using other controlled substances?: No If prescribed controlled substance>3 days was MAPS reviewed?: Prescribed <3 Days If opioid is for acute pain is fill amount 7 days or less?: Yes Referrals: Violet Patel MD [Primary Care Provider] - 1-2 days To Tomas MD [STAFF PHYSICIAN] - 1-2 days Time of Disposition: 02:09
[2024-01-23 02:20] VITALS: BP 148/78; PULSE 70; RESP 18
== END 2024-01-23 02:18 | disposition home or self-care (01) ==
LOC: EC 22:28
DX: N13.2 Hydronephrosis with renal and ureteral calculous obstruction (principal); Z88.8 Allergy status to other drugs, medicaments and biological substances
CPT/HCPCS: 36415; 80053; 85025; 81001; 74176; 99284; 96374; 96375 ×2; 96376; J2270 ×2; J1170; J1885

== ENCOUNTER 2024-10-21 09:59 | Observation (INO) | payer BC ==
--- NOTE | 2024-10-21 10:09 | ED ---
General Adult HPI - General Chief complaint: Urogenital Stated complaint: Kidney stones Time Seen by Provider: 10/21/24 10:05 Source: patient, RN notes reviewed, old records reviewed Mode of arrival: ambulatory Limitations: no limitations - History of Present Illness Initial comments: This is a 53-year-old male who was transferred to us from [facility] emergency department. Patient was found to have a 4.5 proximal ureteral stone on the right with mild hydronephrosis. Patient stated that he normally has to have them lasered to get them out. So he wanted to be transferred the patient was transferred to our facility. Patient currently states he is a 4-5 out of 10. Patient denies nausea at this time. Patient had lab work and urinalysis done at the other facility [facility] indicating infection. Patient has no reproducible pain he stated and only hurts internally - Related Data Home Medications Medication Instructions Recorded Confirmed Benzoyl Peroxide 10% Cleanser 1 applic TOPICAL DAILY 01/19/24 01/19/24 Clindamycin Phosphate 1% Swab 1 applic TOPICAL DAILY 01/19/24 01/19/24 Ergocalciferol (Vitamin D2) 1,250 mcg PO MO 01/19/24 01/19/24 [Drisdol (50,000 Iu)] Ferrous Sulfate [Feosol] 325 mg PO HS 01/19/24 01/20/24 LORazepam [Ativan] 0.5 mg PO BID 01/19/24 01/19/24 Losartan Potassium 100 mg PO HS 01/19/24 01/20/24 Metoprolol Tartrate [Lopressor] 50 mg PO HS 01/19/24 01/20/24 Mirtazapine 7.5 mg PO HS PRN 01/19/24 01/19/24 Naproxen Sodium [Aleve] 220 mg PO BID 01/19/24 01/19/24 Rosuvastatin Calcium 5 mg PO HS 01/19/24 01/19/24 Previous Rx's Medication Instructions Recorded Cephalexin [Keflex] 500 mg PO Q12HR 1 Days #6 cap 01/21/24 Ketorolac [Toradol] 10 mg PO Q6HR PRN #10 tab 01/21/24 HYDROcodone/APAP 7.5-325MG [[place] 1 tab PO Q6HR PRN 3 Days #12 tab 01/23/24 7.5-325] Tamsulosin HCl [Flomax] 0.4 mg PO DAILY #5 capsule 01/23/24 Allergies Allergy/AdvReac Type Severity Reaction Status Date / Time animal dander Allergy Itching Uncoded 10/21/24 10:07 dust Allergy Itching Uncoded 10/21/24 10:07 pollen Allergy Itching Uncoded 10/21/24 10:07 Review of Systems ROS Statement: Those systems with pertinent positive or pertinent negative responses have been documented in the HPI. ROS Other: All systems not noted in ROS Statement are negative. Past Medical History Past Medical History: Asthma, Hyperlipidemia, Hypertension, Sleep Apnea/CPAP/BIPAP Additional Past Medical History / Comment(s): Kidney Stones, cpap. skin infection on antibiotics finished january 12 History of Any Multi-Drug Resistant Organisms: None Reported Past Surgical History: Appendectomy, Orthopedic Surgery, Tonsillectomy Additional Past Surgical History / Comment(s): bilateral carpel tunnel sx. right arm sx. nasal cavaties cleaned out.right hand/thumb area with screws. lithotripsy. Past Anesthesia/Blood Transfusion Reactions: Previous Problems w/ Anesthesia Additional Past Anesthesia/Blood Transfusion Reaction / Comment(s): difficult time waking up Past Psychological History: Anxiety Smoking Status: Never smoker Past Alcohol Use History: Rare Past Drug Use History: None Reported - Past Family History Father Additional Family Medical History / Comment(s): smoker, quad bypass Mother Family Medical History: Diabetes Mellitus General Exam - General Exam Comments Initial Comments: GENERAL: Patient is well-developed and well-nourished. Patient is nontoxic and well- hydrated and is in mild distress. ENT: Neck is soft and supple. No significant lymphadenopathy is noted. Oropharynx is clear. Moist mucous membranes. Neck has full range of motion without eliciting any pain. EYES: The sclera were anicteric and conjunctiva were pink and moist. Extraocular movements were intact and pupils were equal round and reactive to light. Eyelids were unremarkable. PULMONARY: Unlabored respirations. Good breath sounds bilaterally. No audible rales rhonchi or wheezing was noted. CARDIOVASCULAR: There is a regular rate and rhythm without any murmurs gallops or rubs. ABDOMEN: Soft and nontender with normal bowel sounds. SKIN: Skin is clear with no lesions or rashes and otherwise unremarkable. NEUROLOGIC: Patient is alert and oriented x3. Cranial nerves II through XII are grossly intact. Motor and sensory are also intact. Normal speech, volume and content. Symmetrical smile. MUSCULOSKELETAL: Normal extremities with adequate strength and full range of motion. LYMPHATICS: No significant lymphadenopathy is noted PSYCHIATRIC: Normal psychiatric evaluation. Limitations: no limitations Course Vital Signs 10/21/24 10/21/24 10/21/24 10:05 10:20 10:31 Temperature 98 F 97.6 F Pulse Rate 62 59 L Respiratory 18 18 Rate Blood Pressure 128/63 102/52 O2 Sat by Pulse 98 95 Oximetry 10/21/24 11:30 Temperature Pulse Rate 68 Respiratory 19 Rate Blood Pressure 146/77 O2 Sat by Pulse 95 Oximetry Medical Decision Making - Medical Decision Making Was pt. sent in by a medical professional or institution (, RAFAEL, TRACK LAMINATING MACHINE TENDER, urgent care, hospital, or shelter...) When possible be specific @ -No Did you speak to anyone other than the patient for history (EMS, parent, family, police, friend...)? What history was obtained from this source @ -No Did you review nursing and triage notes (agree or disagree)? Why? @ -I reviewed and agree with nursing and triage notes Were old charts reviewed (outside hosp., previous admission, EMS record, old EKG, old radiological studies, urgent care reports/EKG's, shelter records)? Report findings @ -No old charts were reviewed Differential Diagnosis? @ -Differential Abdominal Pain Men: Appendicitis, cholecystitis, diverticulosis, ischemic bowel, pancreatitis, hepatitis, UTI, gastroenteritis, AAA, incarcerated hernia, bowel obstruction, constipation, inflammatory bowel, hepatitis, peptic ulcer disease, splenic infarction, perforated viscus, testicular torsion, this is not meant to be an all-inclusive list EKG interpreted by me (3pts min.). @ -As above X-rays interpreted by me (1pt min.). @ -None done CT interpreted by me (1pt min.). @ -None done U/S interpreted by me (1pt. min.). @ -None done What testing was considered but not performed or refused? (CT, X-rays, U/S, labs)? Why? @ -None What meds were considered but not given or refused? Why? @ -None Did you discuss the management of the patient with other professionals (professionals i.e. , RAFAEL, TRACK LAMINATING MACHINE TENDER, lab, RT, psych nurse, social sciences instructor, solid tire tuber machine operator, teacher, administrative hearing officer, rn case manager hospice)? Give summary @ -I spoke to Dr. Odonnell she agreed to admit the patient admit the patient wrote admitting orders Was smoking cessation discussed for >3mins.? @ -No Was critical care preformed (if so, how long)? @ -No Were there social determinants of health that impacted care today? How? (Homelessness, low income, unemployed, alcoholism, drug addiction, transportation, low edu. Level, literacy, decrease access to med. care, mcc, rehab)? @ -No Was there de-escalation of care discussed even if they declined (Discuss DNR or withdrawal of care, Hospice)? DNR status @ -No What co-morbidities impacted this encounter? (DM, HTN, Smoking, COPD, CAD, Cancer, CVA, ARF, Chemo, Hep., AIDS, mental health diagnosis, sleep apnea, morbid obesity)? @ -None Was patient admitted / discharged? Hospital course, mention meds given and route, prescriptions, significant lab abnormalities, going to OR and other p ertinent info. @ -Patient has a 4.5 mm proximal ureteral stone on the right with some mild hydronephrosis according to the paperwork from [facility]. I spoke with Dr. Odonnell she will come and put a stent in the patient today and I admitted the patient to Dr. Odonnell Undiagnosed new problem with uncertain prognosis? @ -No Drug Therapy requiring intensive monitoring for toxicity (Heparin, Nitro, Insulin, Cardizem)? @ -No Were any procedures done? @ -No Diagnosis/symptom? @ -Right kidney stone Acute, or Chronic, or Acute on Chronic? @ -Acute Uncomplicated (without systemic symptoms) or Complicated (systemic symptoms)? @ -Complicated Side effects of treatment? @ -No Exacerbation, Progression, or Severe Exacerbation? @ -No Poses a threat to life or bodily function? How? (Chest pain, [place], [place], pneumonia, PE, COPD, DKA, ARF, appy, cholecystitis, CVA, Diverticulitis, Homicidal, Suicidal, threat to staff... and all critical care pts) @ -No Disposition Clinical Impression: Right kidney stone Disposition: ADMITTED IP TO THIS HOSP Referrals: Violet Patel MD [Primary Care Provider] - 1-2 days Time of Disposition: 12:25
[2024-10-21] MEDS: KETOROLAC 15 MG/ML 1 ML VIAL IVP STA (10:27)
[2024-10-21] MEDS: SODIUM CHLORIDE 0.9% 1,000 ML IV ONE (13:21)
--- NOTE | 2024-10-21 13:43 | P.GSHP ---
History of Present Illness H&P Date: 10/21/24 Chief Complaint: Right renal colic The patient is a 53-year-old white male with a history of recurrent calcium oxalate urolithiasis. Around midnight, he experienced acute onset of right flank pain and presented to [facility]. CT scan showed mild right hydronephrosis due to a 4.5 mm right proximal ureteral calculus. He was transferred to [facility] for further management. - Constitutional Constitutional: Denies chills, Denies fever - Gastrointestinal Gastrointestinal: Denies nausea, Denies vomiting - Genitourinary (Male) Genitourinary: Reports flank pain, Reports kidney stones, Denies dysuria, Denies hematuria Past Medical History Past Medical History: Asthma, Hyperlipidemia, Hypertension, Sleep Apnea/CPAP/BIPAP Additional Past Medical History / Comment(s): Kidney Stones, cpap. skin infection on antibiotics finished january 12 History of Any Multi-Drug Resistant Organisms: None Reported Past Surgical History: Appendectomy, Orthopedic Surgery, Tonsillectomy Additional Past Surgical History / Comment(s): bilateral carpel tunnel sx. right arm sx. nasal cavaties cleaned out.right hand/thumb area with screws. lithotripsy. Past Anesthesia/Blood Transfusion Reactions: Previous Problems w/ Anesthesia Additional Past Anesthesia/Blood Transfusion Reaction / Comment(s): difficult time waking up Past Psychological History: Anxiety Smoking Status: Never smoker Past Alcohol Use History: Rare Past Drug Use History: None Reported - Past Family History Father Additional Family Medical History / Comment(s): smoker, quad bypass Mother Family Medical History: Diabetes Mellitus Medications and Allergies Home Medications Medication Instructions Recorded Confirmed Type Benzoyl Peroxide 10% Cleanser 1 applic TOPICAL DAILY 01/19/24 01/19/24 History Clindamycin Phosphate 1% Swab 1 applic TOPICAL DAILY 01/19/24 01/19/24 History Ergocalciferol (Vitamin D2) 1,250 mcg PO MO 01/19/24 01/19/24 History [Drisdol (50,000 Iu)] Ferrous Sulfate [Feosol] 325 mg PO HS 01/19/24 01/20/24 History LORazepam [Ativan] 0.5 mg PO BID 01/19/24 01/19/24 History Losartan Potassium 100 mg PO HS 01/19/24 01/20/24 History Metoprolol Tartrate [Lopressor] 50 mg PO HS 01/19/24 01/20/24 History Mirtazapine 7.5 mg PO HS PRN 01/19/24 01/19/24 History Naproxen Sodium [Aleve] 220 mg PO BID 01/19/24 01/19/24 History Rosuvastatin Calcium 5 mg PO HS 01/19/24 01/19/24 History Cephalexin [Keflex] 500 mg PO Q12HR 1 Days #6 cap 01/21/24 Rx Ketorolac [Toradol] 10 mg PO Q6HR PRN #10 tab 01/21/24 Rx HYDROcodone/APAP 7.5-325MG [Tarzan 1 tab PO Q6HR PRN 3 Days #12 tab 01/23/24 Rx 7.5-325] Tamsulosin HCl [Flomax] 0.4 mg PO DAILY #5 capsule 01/23/24 Rx Allergies Allergy/AdvReac Type Severity Reaction Status Date / Time animal dander Allergy Itching Uncoded 10/21/24 10:07 dust Allergy Itching Uncoded 10/21/24 10:07 pollen Allergy Itching Uncoded 10/21/24 10:07 Surgical - Exam Vital Signs Temp Pulse Resp BP Pulse Ox 98 F 62 18 128/63 98 10/21/24 10:05 10/21/24 10:05 10/21/24 10:05 10/21/24 10:05 10/21/24 10:05 - General well developed, well nourished, moderate pain - Respiratory normal respiratory effort - Abdomen Abdomen: soft, non tender, no guarding, no rigid, no rebound - Psychiatric oriented to time, oriented to person, oriented to place, speech is normal, memory intact Results - Imaging CT scan - abdomen: report reviewed Assessment and Plan (1) Calculus of proximal left ureter Current Visit: No Status: Acute Priority: High Code(s): N20.1 - CALCULUS OF URETER SNOMED Code(s): 01183395 (2) Hydronephrosis with renal and ureteral calculous obstruction Current Visit: Yes Status: Acute Code(s): N13.2 - HYDRONEPHROSIS WITH RENAL AND URETERAL CALCULOUS OBSTRUCTION SNOMED Code(s): 906499461 Plan: I have reviewed records from [facility]. The patient's renal function is normal. Urinalysis shows no evidence of infection. The patient is concerned about being discharged home and having to return with intractable symptoms. He will thus undergo cystoscopy with right ureteral stent insertion. I am hopeful that he may be discharged home following the procedure, and arrangements will be made for him to undergo cystoscopy, right ureteral stent removal, and ureteroscopic removal of the right ureteral calculus later this month. Time with Patient: Greater than 30
[2024-10-21] MEDS: IV FLUID CONTINUATION 1,000 ML IV ONE (13:53)
[2024-10-21] MEDS: FAMOTIDINE 20 MG/2 ML VIAL IV STA (14:15)
[2024-10-21] MEDS: DEXAMETHASONE SOD PHOSPHATE 4 MG/ML 1 ML VIAL IVP STA (14:16)
[2024-10-21] MEDS: ONDANSETRON 4 MG/2 ML VIAL IVP STA (14:16)
[2024-10-21] MEDS ORDERED: MIDAZOLAM 2 MG/2 ML VIAL ONE (14:45)
[2024-10-21] MEDS ORDERED: LIDOCAINE 1% INJ 10MG/ML (20 ML MDV) ONE (14:45)
[2024-10-21] MEDS ORDERED: PROPOFOL 10 MG/ML 20 ML VIAL IV ONE (14:45)
[2024-10-21] MEDS ORDERED: SUCCINYLCHOLINE CHLORIDE 200 MG/10 ML VIAL IV ONE (14:45)
[2024-10-21] MEDS ORDERED: fentaNYL (PF) 50 MCG/ML 2 ML AMP ONE (14:45)
[2024-10-21] MEDS: ceFAZolin 3 GM in SODIUM CHLORIDE 0.9% 100 ML IVPB ONE (14:47)
[2024-10-21] MEDS ORDERED: HYDROmorphone 1 MG/ML 1 ML SYRINGE IVP PRN (15:11)
[2024-10-21] MEDS ORDERED: KETOROLAC 15 MG/ML 1 ML VIAL IVP PRN (15:12)
[2024-10-21] MEDS ORDERED: DEXTROSE 5%-0.45% NACL 1,000 ML IV SCH (15:15)
--- NOTE | 2024-10-21 15:17 | P.OP ---
Date of Procedure: 10/21/24 Preoperative Diagnosis: Right hydronephrosis secondary to right ureteral calculus Postoperative Diagnosis: Same Procedure(s) Performed: Cystoscopy, right ureteral stent insertion Anesthesia: GOLDA Surgeon: Brayden Odonnell Estimated Blood Loss (ml): 0 IV fluids (ml): 400 Pathology: none sent Condition: stable Disposition: PACU Indications for Procedure: The patient is a 53-year-old white male with a history of recurrent calcium oxalate urolithiasis. Around midnight, he experienced acute onset of right flank pain and presented to [facility]. CT scan showed mild right hydronephrosis due to a 4.5 mm right proximal ureteral calculus. He was transferred to [facility] for further management and he now comes for stent insertion. Operative Findings: Successful right ureteral stent insertion Description of Procedure: The patient was taken to the operating room and placed in the dorsolithotomy position, with legs supported in Ronni stirrups. The external genitalia was prepped and draped sterilely. The 30 lens was used to introduce the 22-Barbadian Stortz cystoscopic sheath through the urethra and into the bladder under direct vision. The prostatic urethra showed evidence of mild lateral lobe enlargement. The bladder was examined in its entirety. Both ureteral orifices were of normal anatomic location and configuration. No tumors or foreign bodies were seen. A 0.035 inch Glidewire was passed through the cystoscope. The right ureteral orifice was cannulated, and the Glidewire was slowly advanced up to the renal pelvis. A 28 cm, 6-Barbadian double-J ureteral stent was placed over the wire. Proper stent positioning was verified fluoroscopically and endoscopically. The bladder was emptied and the cystoscope removed. The patient tolerated the procedure well and was taken to the recovery room in stable condition.
[2024-10-21 16:23] VITALS: RESP 16; TEMP 97.5
[2024-10-21 18:33] VITALS: BP 130/73; PULSE 69
--- NOTE | 2024-10-21 18:33 | P.DS ---
Providers Date of admission: 10/21/24 12:30 Expected date of discharge: 10/21/24 Attending physician: Brayden Odonnell Primary care physician: Violet Patel - Discharge Diagnosis(es) (1) Calculus of proximal left ureter Current Visit: No Status: Acute Priority: High (2) Hydronephrosis with renal and ureteral calculous obstruction Current Visit: Yes Status: Acute Hospital Course: The patient is a 53-year-old white male with a history of recurrent calcium oxalate urolithiasis. Around midnight, he experienced acute onset of right flank pain and presented to [facility]. CT scan showed mild right hydronephrosis due to a 4.5 mm right proximal ureteral calculus. He was transferred to [facility] for further management. He underwent ureteral stent insertion, and felt well following that procedure. He was thus discharged home. Procedures: Cystoscopy, right ureteral stent insertion on October 21, 2024. Patient Condition at Discharge: Good Plan - Discharge Summary Discharge Rx Participant: No New Discharge Prescriptions: New Tamsulosin [Flomax] 0.4 mg PO DAILY #21 cap Ketorolac [Toradol] 10 mg PO Q6HR PRN #10 tab PRN Reason: Pain No Action Rosuvastatin Calcium 5 mg PO HS@2300 Losartan Potassium 100 mg PO HS@2300 Ibuprofen [Advil] 400 mg PO HS@2300 Metoprolol Tartrate [Lopressor] 50 mg PO HS@2300 LORazepam [Ativan] 1 mg PO HS@2300 Ergocalciferol (Vitamin D2) [Drisdol (50,000 Iu)] 1,250 mcg PO Q30D@2300 Iron(Unknown Dose) 1 tab PO HS@2300 Discharge Medication List Ergocalciferol (Vitamin D2) [Drisdol (50,000 Iu)] 1,250 mcg PO Q30D@2300 01/19/24 [History] LORazepam [Ativan] 1 mg PO HS@2300 01/19/24 [History] Losartan Potassium 100 mg PO HS@2300 01/19/24 [History] Metoprolol Tartrate [Lopressor] 50 mg PO HS@2300 01/19/24 [History] Rosuvastatin Calcium 5 mg PO HS@2300 01/19/24 [History] Ibuprofen [Advil] 400 mg PO HS@2300 10/21/24 [History] Iron(Unknown Dose) 1 tab PO HS@2300 10/21/24 [History] Ketorolac [Toradol] 10 mg PO Q6HR PRN #10 tab 10/21/24 [Rx] Tamsulosin [Flomax] 0.4 mg PO DAILY #21 cap 10/21/24 [Rx] Follow up Appointment(s)/Referral(s): Violet Patel MD [Primary Care Provider] - 1-2 days Activity/Diet/Wound Care/Special Instructions: Diet and activity as tolerated. Patient will be contacted by Dr. Odonnell' office regarding follow-up. Discharge Disposition: HOME SELF-CARE
--- NOTE | 2024-10-21 20:33 | FL ---
EXAMINATION TYPE: FL guidance operating room DATE OF EXAM: 10/21/2024 3:32 PM COMPARISON: Previous fluoroscopic study 01/20/2024. CLINICAL INDICATION: Male, 53 years old with history of Ureteral Stent Insertion; TECHNIQUE: FL guidance operating room, multiple fluoroscopic images provided for procedure. Total fluoroscopy time: 5.48 seconds Total submitted images to PACS: 6 DAP: 1.8467 mGym2 Gycm2 uGym2 cGycm2 or equivalent. FINDINGS: Fluoroscopic view of the right hemiabdomen was obtained for double-J ureteral stent placement. IMPRESSION: Intraoperative fluoroscopic view demonstrates right double-J ureteral stent. [facility], , 10/21/2024 8:31 PM
[2024-10-21] MEDS ORDERED: IBUPROFEN 400 MG TAB PO SCH (23:00)
[2024-10-21] MEDS ORDERED: METOPROLOL TARTRATE 50 MG TAB PO SCH (23:00)
[2024-10-21] MEDS ORDERED: LORazepam 1 MG TAB PO SCH (23:00)
[2024-10-21] MEDS ORDERED: LOSARTAN 50 MG TAB PO SCH (23:00)
[2024-10-21] MEDS ORDERED: FERROUS SULFATE 325 MG TAB PO SCH (23:00)
[2024-10-21] MEDS ORDERED: ATORVASTATIN 10 MG TAB PO SCH (23:00)
[2024-11-17] MEDS ORDERED: ERGOCALCIFEROL 1,250 MCG (50,000 IU) CAPSULE PO SCH (23:00)
== END 2024-10-21 19:40 | disposition home or self-care (01) ==
LOC: EC 09:59 → 6NMEDSUR 12:30
PROVIDERS: ADMIT Urology; ATTEND Urology
DX: N13.2 Hydronephrosis with renal and ureteral calculous obstruction (principal); I10 Essential (primary) hypertension; E78.5 Hyperlipidemia, unspecified; G47.33 Obstructive sleep apnea (adult) (pediatric); J45.909 Unspecified asthma, uncomplicated; F41.9 Anxiety disorder, unspecified; Z79.1 Long term (current) use of non-steroidal anti-inflammatories (NSAID); Z79.899 Other long term (current) drug therapy; Z91.048 Other nonmedicinal substance allergy status; Z87.442 Personal history of urinary calculi; Z90.49 Acquired absence of other specified parts of digestive tract; Z98.890 Other specified postprocedural states
CPT/HCPCS: 96374; 99284; 52332; G0378; C2625; C1769; J2250; J0330; J1100; J0690; J2405; J2003; J3010; J3490; J1885; J2704

== ENCOUNTER 2024-11-01 08:12 | Day surgery (SDC) | payer BC ==
--- NOTE | 2024-10-31 19:47 | P.GSHP ---
History of Present Illness H&P Date: 10/31/24 Chief Complaint: Right renal colic The patient is a 53-year-old white male with a history of recurrent calcium oxalate urolithiasis. Earlier this month, he experienced acute onset of right flank pain and presented to [facility]. CT scan showed mild right hydronephrosis due to a 4.5 mm right proximal ureteral calculus. He was transferred to [facility] and underwent cystoscopy with right ureteral stent insertion. He now comes for ureteroscopic removal of the calculus. - Constitutional Constitutional: Denies chills, Denies fever - Cardiovascular Cardiovascular: Reports high blood pressure - Gastrointestinal Gastrointestinal: Denies nausea, Denies vomiting - Genitourinary (Male) Genitourinary: Reports flank pain, Reports kidney stones, Denies dysuria, Denies hematuria Past Medical History Past Medical History: Asthma, Hyperlipidemia, Hypertension, Sleep A pnea/CPAP/BIPAP Additional Past Medical History / Comment(s): 10/21/24 EC AT [facility], TRANSFERRED TO [facility]. Kidney Stones, cpap. OPEN WOUND PERINEUM. History of Any Multi-Drug Resistant Organisms: None Reported Past Surgical History: Appendectomy, Orthopedic Surgery, Tonsillectomy Additional Past Surgical History / Comment(s): 10/21/[address] AGUAYO. bilateral carpel tunnel sx. right arm sx. nasal cavaties cleaned out.right hand/thumb area with screws. lithotripsyX2. Past Anesthesia/Blood Transfusion Reactions: No Reported Reaction Additional Past Anesthesia/Blood Transfusion Reaction / Comment(s): difficult time waking up Past Psychological History: Anxiety Smoking Status: Never smoker Past Alcohol Use History: Rare Past Drug Use History: None Reported - Past Family History Father Additional Family Medical History / Comment(s): smoker, quad bypass, onset of p arkinsons Mother Family Medical History: Diabetes Mellitus Medications and Allergies Home Medications Medication Instructions Recorded Confirmed Type Ergocalciferol (Vitamin D2) 1,250 mcg PO Q30D@0 01/19/24 10/25/24 History [Drisdol (50,000 Iu)] LORazepam [Ativan] 1 mg PO HS@2300 01/19/24 10/25/24 History Losartan Potassium 100 mg PO HS@2300 01/19/24 10/25/24 History Metoprolol Tartrate [Lopressor] 50 mg PO HS@2300 01/19/24 10/25/24 History Rosuvastatin Calcium 5 mg PO HS@2300 01/19/24 10/25/24 History Ibuprofen [Advil] 400 mg PO HS@2300 10/21/24 10/25/24 History Iron(Unknown Dose) 1 tab PO HS@2300 10/21/24 10/25/24 History Ketorolac [Toradol] 10 mg PO Q6HR PRN #10 tab 10/21/24 10/25/24 Rx Tamsulosin [Flomax] 0.4 mg PO DAILY #21 cap 10/21/24 10/25/24 Rx Allergies Allergy/AdvReac Type Severity Reaction Status Date / Time animal dander AdvReac Itching Uncoded 10/25/24 14:46 dust AdvReac Itching Uncoded 10/25/24 14:46 pollen AdvReac Itching Uncoded 10/25/24 14:46 Surgical - Exam - General well developed, well nourished, moderate distress - Respiratory normal respiratory effort - Abdomen Abdomen: soft, non tender, no guarding, no rigid, no rebound - Genitourinary normal penis with no external lesions, testicles non-tender - Psychiatric oriented to time, oriented to person, oriented to place, speech is normal, memory intact Results - Imaging CT scan - abdomen: report reviewed Assessment and Plan (1) Calculus of proximal left ureter Status: Acute Priority: High Code(s): N20.1 - CALCULUS OF URETER SNOMED Code(s): 51642935 Plan: Cystoscopy, right ureteral stent removal, right ureteroscopy with Holmium laser lithotripsy and possible stone basketing. The procedure has been reviewed in detail with the patient. He is aware of potential risks, which include anesthesia, bleeding, infection, ureteral injury, and inability to remove the calculus.
[~2024-11-01 08:12] MED LIST: LIDOCAINE 1% (10MG/ML) FOR IV START INTRADERMA PRN; droPERidol 5 MG/2 ML VIAL IVP ONE
--- NOTE | 2024-11-01 08:37 | XR ---
EXAMINATION TYPE: XR KUB DATE OF EXAM: 11/01/2024 8:29 AM COMPARISON: 04/23/2015 CLINICAL INDICATION: Male, 54 years old with history of calculus; LOCATED [facility]IN [facility] TECHNIQUE: One radiographic view of the abdomen was obtained. FINDINGS: The bowel gas pattern is nonspecific without dilated loops of small or large bowel. . Fecal material and gas are demonstrated throughout the colon and rectum. There is no evidence for organome mathew or pneumoperitoneum. No acute osseous process. Right ureteral stent with superior and inferior pigtails in appropriate position. Right renal calculi measuring up to 7 mm. IMPRESSION: 1. Right ureteral stent in appropriate position. 2. Right renal calculus measuring 7 mm. 3. Nonspecific bowel gas pattern without radiographic evidence for acute process. [facility], , 11/01/2024 8:35 AM
[2024-11-01] MEDS: IV FLUID CONTINUATION 1,000 ML IV ONE (09:26)
[2024-11-01] MEDS: LACTATED RINGERS 1,000 ML IV SCH (09:34)
[2024-11-01] MEDS: ONDANSETRON 4 MG/2 ML VIAL IVP ONE (09:34)
[2024-11-01] MEDS: DEXAMETHASONE SOD PHOSPHATE 4 MG/ML 1 ML VIAL IV ONE (09:35)
[2024-11-01] MEDS: FAMOTIDINE 20 MG/2 ML VIAL IV STA (09:35)
[2024-11-01] MEDS ORDERED: fentaNYL (PF) 50 MCG/ML 2 ML AMP ONE (10:15)
[2024-11-01] MEDS: ceFAZolin 3 GM in SODIUM CHLORIDE 0.9% 100 ML IVPB PRN (10:15)
[2024-11-01] MEDS ORDERED: GLYCOPYRROLATE 0.2 MG/ML 2 ML VIAL ONE (10:15)
[2024-11-01] MEDS ORDERED: PROPOFOL 10 MG/ML 20 ML VIAL IV ONE (10:15)
[2024-11-01] MEDS ORDERED: NEOSTIGMINE 1 MG/ML 10 ML VIAL ONE (10:15)
[2024-11-01] MEDS ORDERED: ROCURONIUM 10 MG/ML (5 ML VIAL) IV ONE (10:15)
[2024-11-01] MEDS ORDERED: SUCCINYLCHOLINE CHLORIDE 200 MG/10 ML VIAL IV ONE (10:15)
[2024-11-01] MEDS ORDERED: PHENYLEPHRINE 10 MG/ML VIAL ONE (10:15)
[2024-11-01] MEDS ORDERED: LIDOCAINE 1% INJ 10MG/ML (20 ML MDV) ONE (10:15)
[2024-11-01] MEDS ORDERED: MIDAZOLAM 2 MG/2 ML VIAL ONE (10:15)
[2024-11-01] MEDS ORDERED: SUGAMMADEX SODIUM 100 MG/ML SYR IV ONE (10:15)
--- NOTE | 2024-11-01 11:28 | P.OP ---
Date of Procedure: 11/01/24 Preoperative Diagnosis: Right renal calculus Postoperative Diagnosis: Right renal calculi Procedure(s) Performed: Cystoscopy, right ureteral stent removal, right ureteroscopy with Holmium laser lithotripsy and stone basketing Anesthesia: EMMIE Surgeon: Brayden Odonnell Estimated Blood Loss (ml): 5 IV fluids (ml): 800 Pathology: other (Right renal calculus fragments, sent for chemical analysis) Condition: stable Disposition: PACU Indications for Procedure: The patient is a 53-year-old white male with a history of recurrent calcium oxalate urolithiasis. Earlier this month, he experienced acute onset of right flank pain and presented to [facility]. CT scan showed mild right hydronephrosis due to a 4.5 mm right proximal ureteral calculus. He was transferred to [facility] and underwent cystoscopy with right ureteral stent insertion. He now comes for ureteroscopic removal of the calculus. Preoperative KUB x-ray suggest that the calculus is now located within the right kidney. Operative Findings: 4 right renal calculi, all fragmented completely. Description of Procedure: The patient was taken to the operating room and placed in the dorsolithotomy position, with legs supported in Ronni stirrups. The external genitalia was prepped and draped sterilely. The 30 lens was used to introduce the 21-Cambodian Jay cystoscopic sheath through the urethra and into the bladder under direct vision. The prostatic urethra showed evidence of mild lateral lobe enlargement. The bladder was examined in its entirety. No abnormalities were seen. Grasping forceps were used to grasp the distal end of the right ureteral stent, which was removed along with the cystoscope. A 0.038 inch Glidewire was passed through the stent and up to the right renal pelvis, where it coiled. The stent was removed, and an 11/13-Cambodian ureteral access catheter was passed over the wire, up to the proximal ureter. The Jay AppRedeem flexible ureteroscope was then passed through the ureteral access catheter sheath and advanced under direct vision, up to the right renal pelvis. Each calyx was examined. 3 calculi were identified within a midpole calyx, measuring approximately 5 mm each. An additional calculus was seen within a lower pole calyx. The 272 micron Holmium laser probe was passed through the ureteroscope, and lithotripsy was performed. The midpole calculi were fragmented using a combination of dusting and popcorning, leaving no residual calculus fragments exceeding 1 mm in size. The lower pole calculus was more dense, and larger fragments were removed using a 1.9 Cambodian 0 tip nitinol basket. Once again, the only remaining calculus fragments were less than 1 mm in size, and none were seen on fluoroscopy. Pullout ureteroscopy showed no evidence of ureteral trauma, and no calculi within the ureter. The patient tolerated the procedure well and was taken to the recovery room in stable condition. [facility] Report: Procedure Acuity: Elective Stone Size and Location: 5 mm, right midpole and lower pole Ureteral Dilation: No Ureteral Access Sheath Used: Yes Stone Sent for Analysis: Yes All Stones/Fragments Were Removed with a Basket: No Complications: No Preoperative Antibiotics Given: Yes Stent Placed: No Discharge Medications: None
[2024-11-01] MEDS: LACTATED RINGERS 1,000 ML IV ONE (11:35)
--- NOTE | 2024-11-01 11:41 | FL ---
EXAMINATION TYPE: FL guidance operating room DATE OF EXAM: 11/01/2024 11:27 AM COMPARISON: Pre Operative Images if available both CT/MRI or plain film CLINICAL INDICATION: Male, 54 years old with history of CYSTOSCOPY LITHO RT URETERAL CALCULUS; TECHNIQUE: FL guidance operating room, multiple fluoroscopic images provided for procedure. Total fluoroscopy time: 12 seconds Total submitted images to PACS: 1 DAP: [id number] mGym2 Gycm2 uGym2 cGycm2 or equivalent. FINDINGS: Fluoroscopic images taken for renal stone. No evidence of pneumoperitoneum. Multilevel degeneration c hanges of the spine. IMPRESSION: 1. No evidence for intraoperative complication. 2. Please see the operative/procedural note for further details. [facility], , 11/01/2024 11:38 AM
[2024-11-01 11:43] VITALS: TEMP 97
[2024-11-01] MEDS: HYDROmorphone 0.5 MG/0.5 ML SYRINGE IVP PRN (12:23)
[2024-11-01] MEDS: KETOROLAC 15 MG/ML 1 ML VIAL IVP STA (12:47)
[2024-11-01] MEDS: KETOROLAC 15 MG/ML 1 ML VIAL IVP ONE (13:44)
[2024-11-01 13:54] VITALS: BP 121/79; PULSE 58; RESP 18
== END 2024-11-01 13:59 | disposition home or self-care (01) ==
LOC: OR 08:12
PROVIDERS: ATTEND Urology
DX: N13.2 Hydronephrosis with renal and ureteral calculous obstruction (principal); I10 Essential (primary) hypertension; E78.5 Hyperlipidemia, unspecified; G47.33 Obstructive sleep apnea (adult) (pediatric); J45.909 Unspecified asthma, uncomplicated; F41.9 Anxiety disorder, unspecified; Z90.89 Acquired absence of other organs; Z90.49 Acquired absence of other specified parts of digestive tract; Z83.3 Family history of diabetes mellitus; Z99.89 Dependence on other enabling machines and devices; Z79.1 Long term (current) use of non-steroidal anti-inflammatories (NSAID); Z79.899 Other long term (current) drug therapy
CPT/HCPCS: 84132; 82365; 74018; 52356; C1769; J2250; J0330; J1100; J2710; J0690; J2405; J2003; J3010; J3490; J1885; J2704; J1171; J2371; J1596

== ENCOUNTER → 2024-12-27 | Outpatient (CLI) | payer BC ==
--- NOTE | 2024-12-27 10:28 | US ---
EXAMINATION TYPE: US kidneys/renal and bladder DATE OF EXAM: 12/27/2024 COMPARISON: CT abdomen and pelvis January 22, 2024 CLINICAL INDICATION: Male, 54 years old with history of N13.2 HYDRONEPHROSIS WITH RENAL AND URETERAL CALCU; Hx of stones limited due to body habitus. TECHNIQUE: Grayscale imaging of the bilateral kidneys and urinary bladder: FINDINGS: EXAM MEASUREMENTS: Right Kidney: 11.2 x 5.1 x 5.1 cm Left Kidney: 10.4 x 5.1 x 5.6 cm Right Kidney: Echogenic area seen mid pole no shadowing. Left Kidney: No hydronephrosis or masses seen Bladder: anechoic Bilateral Jets seen: no There is no evidence for hydronephrosis at this point in time. An 8mm nonobstructing calculus midpole of the right kidney is identified. No masses are identified. The urinary bladder is anechoic. IMPRESSION: Suboptimal study due to large body habitus. Small nonobstructing bilateral calculi on mos t recent CT are less well seen on ultrasound. No hydronephrosis is noted bilaterally. [facility], , 12/27/2024 10:25 AM
== END | disposition home or self-care (01) ==
LOC: RADUSWWP 09:46
PROVIDERS: ATTEND Urology
DX: N13.2 Hydronephrosis with renal and ureteral calculous obstruction (principal)
CPT/HCPCS: 76770

== ENCOUNTER → 2025-04-15 | Outpatient (CLI) | payer BC ==
--- NOTE | 2025-04-15 12:25 | XR ---
EXAMINATION TYPE: XR tibia fibula RT DATE OF EXAM: 04/15/2025 11:56 AM INDICATION: Patient age:Male; 54 years old; Reason for study: [id number] RT LEG INJURY; [facility]. pain COMPARISON: None TECHNIQUE: The right tibia/fibula was examined in AP and lateral projections. FINDINGS: No evidence of any acute osseous pathology or joint dislocation. Soft tissue swelling of th e ankle. No osseous erosions or periosteal reaction identified. No radiopaque foreign body identified . Posterior and plantar calcaneal enthesophytes. IMPRESSION: 1. No evidence of acute fracture or dislocation. 2. Soft tissue swelling of the ankle. [facility], , 04/15/2025 12:22 PM
== END | disposition home or self-care (01) ==
LOC: RADXRYALE 11:42
PROVIDERS: ATTEND Internal Medicine
DX: S89.91XA Unspecified injury of right lower leg, initial encounter (principal); M79.89 Other specified soft tissue disorders